=== PATIENT | female | born 1945 | race Caucasian/White ===

== ENCOUNTER → 2017-08-08 | Outpatient (CLI) | payer OTHER, MEDICARE | LOC: GIMAGING 09:11 | PROVIDERS: ATTEND Internal Medicine Geriatric Medicine | DX: M19.012 Primary osteoarthritis, left shoulder (principal) | CPT/HCPCS: 73030-PO ==

== ENCOUNTER → 2017-10-24 | Outpatient (CLI) | payer OTHER, MEDICARE | LOC: FIMAGING 11:10 | PROVIDERS: ATTEND Internal Medicine Geriatric Medicine | DX: Z13.820 Encounter for screening for osteoporosis (principal); N95.1 Menopausal and female climacteric states ==

== ENCOUNTER → 2017-12-27 | Outpatient (CLI) | payer OTHER, MEDICARE | LOC: GIMAGING 12:43 | PROVIDERS: ATTEND Internal Medicine | DX: I51.7 Cardiomegaly (principal); J98.11 Atelectasis; M47.9 Spondylosis, unspecified | CPT/HCPCS: 71046-PO ==

== ENCOUNTER → 2017-12-28 | Outpatient (CLI) | payer OTHER, MEDICARE ==
[~2017-12-28] MED LIST: IOPAMIDOL (ISOVUE 370) 100 ML BTL IV ONE
== END ==
LOC: FIMAGING 06:33
PROVIDERS: ATTEND Internal Medicine
DX: R06.02 Shortness of breath (principal); R06.09 Other forms of dyspnea; R09.02 Hypoxemia; R79.89 Other specified abnormal findings of blood chemistry
CPT/HCPCS: 71275; Q9967

== ENCOUNTER 2017-12-29 12:22 | Inpatient (IN) | payer OTHER, MEDICARE ==
[2017-12-29] MEDS ORDERED: ALBUTEROL 60 PUFFS/8 GM MDI IH PRN (15:20)
--- NOTE | 2017-12-29 15:26 | CPEKG ---
Heart Rate: 53 RR Interval: 1132 P-R Interval: 160 QRSD Interval: 74 QT Interval: 456 QTC Interval: 429 P [place]: 35 QRS [place]: 12 T Wave [place]: 16 EKG Severity - NORMAL ECG - EKG Impression: SINUS RHYTHM Electronically Signed By: César Madrigal 29-Dec-2017 15:50:02
--- NOTE | 2017-12-29 15:59 | GHP ---
[f rep st] HISTORY AND PHYSICAL DATE OF ADMISSION: 12/29/2017 CHIEF COMPLAINT: Dyspnea on exertion. HISTORY OF PRESENT ILLNESS: The patient is a 72-year-old female. She moved here from [place] 1 year ago. She was diagnosed with diastolic congestive heart failure 4 years ago. She has had dyspnea on exertion for quite some time , so she started a walking program and was up to 1 mile at a time. Although she did have a prolonged recovery after walking her mile, she was tolerating this in a stable manner. Approximately 4 days ago, she got acute worsening of her shortness of breath. She is so short of breath she cannot even cross the street without extreme dyspnea. She does not have any shortness of breath when at rest. There was no chest pain. There is no PND or orthopnea. She has baseline bilateral lower extremity edema; typically, the left swelling more than the right. She does describe weight gain; however, describes falling off the wagon regarding her diet plan. Her high weight was 228. She had gone on a diet and gone down to 210 but she recently gained weight back to 220. She attributes this to noncompliance with her eating protocol and she does not believe it to be fluid. She previously had PFTs in [place] and was told they were negative for COPD or asthma. Her last stress test and echocardiogram done in [place] were September 2016 and they were unremarkable.. PAST MEDICAL HISTORY: 1. Chronic kidney disease stage 3. Baseline creatinine 1.3. 2. Chronic diastolic congestive heart failure secondary to diastolic dysfunction. 3. Familial tremor. 4. Hypertension. 5. Hyperlipidemia. 6. Obesity, BMI 39. 7. History of stroke. PAST SURGICAL HISTORY: 1. Hysterectomy. 2. Left total hip arthroplasty. 3. Hernia surgery. 4. Cardiac catheterization August 2014 was normal. MEDICATIONS: Please see computer record for full detailed list. ALLERGIES: Penicillin. SOCIAL HISTORY: Never smoked. She will have an alcoholic beverage about 2 times per month. She lives alone. Her 7 years ago. She moved here from [place] 1 year ago to be closer to her sister who needed assistance. She has 2 children, both who still live in [place]. REVIEW OF SYSTEMS: Complete review of systems obtained. Review of systems negative on constitutional, HEENT, GI, pulmonary, vascular, , hematology, muscular, endocrine, psych. Pertinent positives as noted in HPI. FAMILY HISTORY: Reviewed, noncontributory to presenting complaint. PHYSICAL EXAMINATION: GENERAL: Well-developed, well-nourished female, in no acute distress. VITAL SIGNS: Temperature is 36.6, pulse 69, blood pressure 126 /75, saturating 94% on room air. HEENT: Normal conjunctivae. Pupils equal and react to light. Normal ears and nose. Hearing intact. Normal teeth. Oropharynx moist. NECK: Trachea midline. No thyromegaly. CHEST: Normal respiratory. Lungs are clear to auscultation bilaterally. CARDIOVASCULAR: Regular rhythm. No murmur. No extremity edema. ABDOMEN: Soft, nontender. No hepatosplenomegaly. SKIN: Warm, dry, intact without rash. MUSCULOSKELETAL : No cyanosis or clubbing. Strength 5/5 upper and lower extremities. NEUROLOGIC: Intact. Normal sensation to light touch. PSYCHIATRIC: Alert and oriented x3. Normal mood and affect. Normal judgment. Normal memory. LABORATORY DATA: Reviewed. These were done as an outpatient on November 27. White count 6.97, hematocrit 42.2, platelets 202. Sodium 139, potassium 4.9, chloride 101, bicarb 27, BUN 30, creatinine 1.3, glucose 68. Troponins negative. BNP is 544. TSH is 1.4. CT angiogram of the chest is negative for pulmonary embolus. Medical records reviewed. I reviewed outpatient medical records including Dr. Mcintyre's note, as well as stress test and echo from September 2016 in [place] for which records are provided. These were both unremarkable. ASSESSMENT/PLAN: 1. Dyspnea on exertion. As an outpatient yesterday, she had a CT angiogram of the chest that was negative. She also had a chest x-ray that was unremarkable. I do not think these need to be repeated. Her room air saturations are good at rest. Reportedly, she desaturates to 88% with exertion. I find her to be quite euvolemic and without evidence of pulmonary edema. I do not hear any wheezing. Will re-evaluate for possible cardiac etiology of dyspnea on exertion. Will repeat an echocardiogram and an exercise treadmill test. I do not think we need to repeat nuclear images at this time because she did have them relatively recently. If all this is negative, then I wonder whether repeating outpatient pulmonary function tests to evaluate for possible obesity hypoventilation syndrome. 2. Chronic congestive heart failure secondary to diastolic dysfunction. She appears relatively euvolemic at this time. Will continue her usual Lasix and losartan. 3. Chronic kidney disease. She is at her baseline creatinine 1.3. 4. Familial tremor. I will hold her beta-wilmer for stress testing in the morning. CODE STATUS: Full. ADMISSION STATUS: Will admit to observation. Will evaluate tomorrow regarding ongoing need for hospitalization. DVT PROPHYLAXIS: She is high risk. Will place on subcu Lovenox. /[id number]/MODL MTDD
--- NOTE | 2017-12-29 16:27 | ECHO ---
[email or web address] [address] Main: [phone] Fax: Transthoracic Echocardiogram Name: CANDI LINCOLN MR#: [id number] Study Date: 12/29/2017 Study Time: 03:48 PM Date of : 1945 Age: 72 year(s) Height: 160 cm (63 in.) Weight: 99.79 kg (220 lb.) BSA: 2.01 m2 Gender: Female Examination: Echo Indication: Dyspnea on exertion Image Quality: Contrast: Requested by: Josefa Lucio BP: 126 mmHg/75 mmHg Heart Rate: Rhythm: Indication: Dyspnea on exertion Procedure Staff Sport Psychologist: Fabricio Yeung RDCS Reading Physician: Feroz Rollins MD Requesting Provider: Conclusions: Normal global systolic LV function. EF is 67 %. Trivial to mild mitral regurgitation. Trivial to mild tricuspid valve regurgitation. The pulmonary artery pressure is mild to moderately increased. RV systolic pressure is measured 52 mmHg. Measurements: Chambers Valvular Assessment AV/MV Valvular Assessment TV/PV Normal Normal Normal Name Value Range Name Value Range Name Value Range Ao Sadie (MM): 2.6 cm (2.2 cm-3.7 AV Vmax: 1.74 m/s (1 m/s-1.7 TR Vmax: 3.41 mm/s ( - ) cm) m/s) TR PGmax: 47 mmHg ( - ) IVSd (2D): 1.0 cm (0.6 cm-1.1 AV maxP mmHg ( - ) syst. PAP: 52 mmHg ( - ) cm) LVOT Vmax: 1.11 m/s (0.7 m/s-1.1 PV Vmax: 0.84 m/s (0.6 m/s-0.9 LVDd (2D): 4.7 cm (3.9 cm-5.3 m/s) m/s) cm) MV E Vmax: 0.67 m/s ( - ) PV PGmax: 3 mmHg ( - ) LVDs (2D): 3.0 cm (2.1 cm-4 MV A Vmax: 0.73 m/s ( - ) cm) MV E/A: 0.92 ( - ) LVPWd (2D): 1.1 cm ( - ) LVEF (2D): 67 (>=54 %) Continued Measurements: Chambers Valvular Assessment AV/MV Valvular Assessment TV/PV Name Value Name Value Name Value LADs Lon.8 cm MV E/E' Septal: 12.70 CVP (est.): 5 mmHg LA Area: 24.1 cm2 MV E/E' Lateral: 9.10 LA Volume: 78 ml LA Volume Index: 38.8 ml/m2 Patient: CANDI LINCOLN Study Date: 12/29/2017 Page 1 of 2 03:48 PM TAPSE: 2.5 cm Findings: Left Ventricle: Normal size left ventricle. Mild concentric LV hypertrophy. Normal global systolic LV function. EF is 67 %. No regional wall motion abnormality. Diastolic dysfunction is present. . Right Ventricle: Normal size right ventricle. Normal RV function. Left Atrium: The left atrium is mildly dilated. Right Atrium: The right atrium is mildly dilated. Mitral Valve: The mitral valve is normal in appearance. Trivial to mild mitral regurgitation. Aortic Valve: The aortic valve is tri-leaflet and functions normally. Mild aortic cusp calcification is noted. There is no aortic valve regurgitation. No aortic valve stenosis is present. Tricuspid Valve: Trivial to mild tricuspid valve regurgitation. The pulmonary artery pressure is mild to moderately increased. RV systolic pressure is measured 52 mmHg. Pulmonic Valve: The pulmonic valve is normal in appearance and function. Aorta: The aorta is normal. Pericardium: No pericardial effusion. (No Signature Object) Patient: CANDI LINCOLN Study Date: 12/29/2017 Page 2 of 2 03:48 PM [id number]
[2017-12-29] MEDS: PROPRANOLOL SR 60 MG CAP PO SCH (18:23)
[2017-12-29] MEDS: buPROPion SR 150 MG TAB PO SCH (18:26)
[2017-12-29] MEDS: PRAVASTATIN SODIUM 20 MG TAB PO SCH (18:26)
[2017-12-29] MEDS ORDERED: PROPRANOLOL HCL 120 MG PO SCH ×2 (19:00)
[2017-12-29] MEDS ORDERED: NON-FORMULARY NEW DRUG (Simvastatin [Simvastatin] 10 MG) PO SCH (19:00)
[2017-12-29] MEDS ORDERED: TEMAZEPAM 15 MG CAP PO PRN (19:48)
[2017-12-30 04:41] LABS: PLATELET COUNT 176 10^3/uL (150-400)
[2017-12-30] MEDS: ENOXAPARIN 40 MG/0.4 ML SYR SC SCH (08:49)
[2017-12-30] MEDS: buPROPion SR 150 MG TAB PO SCH ×2 (08:50→19:24)
[2017-12-30] MEDS: CITALOPRAM 20 MG TAB PO SCH (08:50)
[2017-12-30] MEDS ORDERED: NON-FORMULARY NEW DRUG (Citalopram Hydrobromide [Celexa] 40 MG) PO SCH (09:00)
[2017-12-30] MEDS ORDERED: NON-FORMULARY NEW DRUG (Losartan Potassium [Losartan Potassium] 100 MG) PO SCH (09:00)
[2017-12-30] MEDS ORDERED: FUROSEMIDE 40 MG TAB PO SCH (09:00)
--- NOTE | 2017-12-30 10:50 | HOSPPROG ---
Hospitalist Progress Note Assessment/Plan: #BONILLA #Diastolic CHF #Right sided Failure #Sinus Bradycardia -reports that HR baseline is in the 50's. consider decreasing dose of BB if cont to have bradycardia tomorrow #Familial Tremor -chronically on Propranolol #HTN -Losartan #Chronic Renal Insufficiency, baseline Cr 1.2 #HLD, on statin, LDL at goal #Morbid Obesity Plan: -She received her BB yesterday and per Cards tech will change stress test to Ludy scan. -I suspect the etiology of her BONILLA may be either worsening heart failure vs RAD. She does report increased LE edema over the past few months and weight gain. However, her CXR and exam is not consistent with volume overload, although her body habitus makes assessment difficult. She also reports intermittent cough and wheezing and exam is c/w prolonged exp phase. Will try a trial of increased diuretics, check I's and O's, and schedule bronchodilators. She also moved from [place] about a year ago and her symptoms have been progressively worsening. -Negative trop and unremarkable EKG noted -Change to inpatient. -Lovenox for DVT proph Subjective: no cp or sob currently. on 3L, waiting for stress test. Objective: Vital Signs Temp Pulse Resp BP Pulse Ox 36.8 C 51 L 14 122/66 H 96 12/30/17 07:12 12/30/17 07:12 12/30/17 07:12 12/30/17 07:12 12/30/17 07:12 Microbiology 12/29/17 17:30 Respiratory Panel (PCR) - Final Nasal, Sinus - Swab No Organism Detected Laboratory Results 12/30/17 04:15 12/30/17 04:15 12/29/17 12/30/17 12/31/17 05:59 05:59 05:59 Intake Total 350 Balance 350 - Physical Exam Constitutional: no apparent distress Eyes: PERRL, EOMI Ears, Nose, Mouth, Throat: moist mucous membranes, hearing normal Cardiovascular: regular rate and rhythym, edema Respiratory: no respiratory distress, reduced air movement Gastrointestinal: normoactive bowel sounds, soft, non-tender abdomen Skin: warm Musculoskeletal: full muscle strength Neurologic: AAOx3 Psychiatric: interacting appropriately, not anxious, not encephalopathic ICD10 Worksheet Patient Problems: Problems Problem Status Onset Dyspnea on exertion Acute - ICD10 Problem Qualifiers (1) Dyspnea on exertion
--- NOTE | 2017-12-30 11:31 | ASMTCMCOM ---
CM Note CM Note Notes: Spoke w/RN and met w/ pt, she was admitted for increased sob. Pt uses home O2, has been set up by PCP with [facility], RT should call [facility] to let them know when pt discharging. Pt is otherwise independent, CM available for any changes. DC Plan: Independent Date Signed: 12/30/2017 11:31 AM Electronically Signed By:Vania Pablo RN
[2017-12-30] MEDS ORDERED: REGADENOSON 0.4 MG/5 ML SYR IVP ONE (11:40)
[2017-12-30] MEDS: ALBUTEROL 3 ML DEYVIAL IH SCH ×3 (11:51→21:55)
--- NOTE | 2017-12-30 12:39 | PDCARST ---
CAR Stress Test Results Type of Stress Test: Lexiscan stress test Indication: BONILLA Description of Procedure: After informed consent was obtained, pt was established to ECG, blood pressure, HR and oximetry monitoring. STRESS EKG AND HEMODYNAMIC DATA. Resting heart rate: 50 BPM. Resting ECG: SB. Resting blood pressure: 116/70 mmHg. O2 saturation at rest: 97%. Peak heart rate: 72 BPM. Peak blood pressure: 140/74 mmHg. Arrhythmias: none. Symptoms: The patient experienced no typical symptoms of angina during stress or recovery. Stress/Infusion ECG: No change in rhythm with no significant ST/T wave changes. Stress/infusion O2 saturation: 98% Impression: Uneventful Lexiscan infusion. Conclusion: Await nuclear images.
--- NOTE | 2017-12-30 13:33 | PDMN ---
Medical Necessity Medical necessity: change to IP; los>2mn for BONILLA r/t worsening diastolic heart failure vs RAD, w/ prolonged expiratory wheeze, cough, increasing LE edema and wt gain; requires stress test, increased diuretics w/one time IV dose, I&O, and scheduled bronchodilators; comorbid sinus rosie, htn, CRI, HLD, and morbid obesity; per order and progress note 12/30/17
[2017-12-30] MEDS: LOSARTAN POTASSIUM 50 MG TAB PO SCH (13:39)
[2017-12-30] MEDS: SPIRONOLACTONE 25 MG TAB PO SCH (13:41)
[2017-12-30] MEDS ORDERED: FUROSEMIDE 20 MG/2 ML VIAL IVP ONE (13:45)
[2017-12-30] MEDS: FUROSEMIDE 20 MG/2 ML VIAL IVP ONE ×2 (13:51→13:59)
[2017-12-30] MEDS: PRAVASTATIN SODIUM 20 MG TAB PO SCH (19:24)
[2017-12-30] MEDS: PROPRANOLOL SR 60 MG CAP PO SCH (20:19)
[2017-12-31] MEDS: ALBUTEROL 3 ML DEYVIAL IH SCH ×4 (06:25→21:33)
--- NOTE | 2017-12-31 08:27 | HOSPPROG ---
Hospitalist Progress Note Assessment/Plan: #BONILLA * unclear cause. Ct angio negative. Stress test looks OK. Has allergies but not actively wheezing. Had edema on admission. * will try more aggressive diuresis and walk patient today #Diastolic CHF #Right sided Failure #Sinus Bradycardia -reports that HR baseline is in the 50's. consider decreasing dose of BB if cont to have bradycardia tomorrow #Familial Tremor -chronically on Propranolol #HTN -Losartan #Chronic stage 3 kidney disease, baseline Cr 1.2 #HLD, on statin, LDL at goal #Morbid Obesity Subjective: feels about the same. only gets SOb with exertion at baseline. Hasn' t walked recently Objective: Vital Signs Temp Pulse Resp BP Pulse Ox 36.6 C 57 L 20 104/63 94 12/31/17 03:13 12/31/17 06:27 12/31/17 06:27 12/31/17 03:13 12/31/17 06:27 Laboratory Results 12/30/17 04:15 12/31/17 04:14 12/30/17 12/31/17 01/01/18 05:59 05:59 05:59 Intake Total 350 240 Balance 350 240 - Physical Exam Constitutional: no apparent distress, appears nourished, not in pain Eyes: anicteric sclera, EOMI Ears, Nose, Mouth, Throat: moist mucous membranes, hearing normal Cardiovascular: regular rate and rhythym, no murmur, rub, or gallop, edema ( trace) Respiratory: no respiratory distress, no rales or rhonchi, clear to auscultation , reduced air movement (slight), No expiratory wheeze Neurologic: AAOx3 Psychiatric: interacting appropriately, not anxious, not encephalopathic, thought process linear ICD10 Worksheet Patient Problems: Problems Problem Status Onset Dyspnea on exertion Acute
[2017-12-31] MEDS ORDERED: FUROSEMIDE 40 MG/4 ML VIAL IVP SCH (09:00)
[2017-12-31] MEDS: FUROSEMIDE 40 MG/4 ML VIAL IVP SCH (09:04)
[2017-12-31] MEDS: ENOXAPARIN 40 MG/0.4 ML SYR SC SCH (09:04)
[2017-12-31] MEDS: SPIRONOLACTONE 25 MG TAB PO SCH (09:05)
[2017-12-31] MEDS: CITALOPRAM 20 MG TAB PO SCH (09:05)
[2017-12-31] MEDS: LOSARTAN POTASSIUM 50 MG TAB PO SCH (09:05)
[2017-12-31] MEDS: buPROPion SR 150 MG TAB PO SCH ×2 (09:05→18:40)
[2017-12-31] MEDS: PRAVASTATIN SODIUM 20 MG TAB PO SCH (18:41)
[2017-12-31] MEDS: PROPRANOLOL SR 60 MG CAP PO SCH (19:52)
[2018-01-01] MEDS: ALBUTEROL 3 ML DEYVIAL IH SCH ×2 (06:11→11:08)
[2018-01-01 07:49] VITALS: BP 116/78
[2018-01-01] MEDS: buPROPion SR 150 MG TAB PO SCH (08:34)
[2018-01-01] MEDS: SPIRONOLACTONE 25 MG TAB PO SCH (08:35)
[2018-01-01] MEDS: LOSARTAN POTASSIUM 50 MG TAB PO SCH (08:35)
[2018-01-01] MEDS: ENOXAPARIN 40 MG/0.4 ML SYR SC SCH (08:36)
[2018-01-01] MEDS: CITALOPRAM 20 MG TAB PO SCH (08:36)
[2018-01-01] MEDS: FUROSEMIDE 40 MG/4 ML VIAL IVP SCH (08:43)
--- NOTE | 2018-01-01 10:23 | GDS ---
[f rep st] DISCHARGE SUMMARY DISCHARGE DIAGNOSES: 1. Dyspnea on exertion. Most likely due to diastolic congestive heart failure exacerbation. 2. Diastolic congestive heart failure exacerbation. 3. Hypertension. 4. Chronic kidney disease stage 3. 5. Essential tremor. 6. History of hypertension. 7. History of stroke. HISTORY: This is a 72-year-old female, who presented with subacute dyspnea on exertion. HOSPITAL COURSE: The patient had already had a CAT scan of her chest that ruled out PE outpatient. She was admitted and ended up getting a cardiac stress test which was negative for any ischemia. She had an echocardiogram which showed diastolic dysfunction. She did present with edema and weight gai n. Although the patient did not have overt pulmonary edema on imaging, working diagnosis was diastol ic congestive heart failure exacerbation. She was diuresed and with that her dyspnea on exertion imp roved and her hypoxia on exertion also resolved. She would thus be discharged home on a higher dose of Lasix and will follow up with her primary care doctor. DISPOSITION: Home. DISCHARGE MEDICATIONS: She is to resume her home medicines except: 1. She will increase her Lasix to twice daily for 4-5 days and then go back to 1 daily. She is inst ructed to weigh herself after that and go back to twice daily if her weight goes up. 2. Her losartan will be decreased to 50 mg as her blood pressure was on a little bit of the low side . FOLLOWUP INSTRUCTIONS: She is instructed to follow up with her primary care doctor. Greater than 30 minutes was spent with discharge. /[id number]/MODL
--- NOTE | 2018-01-01 10:46 | ASMTCMCOM ---
CM Note CM Note Notes: Patient has been medically cleared for discharge per hospital medicine, she is requesting a PT eveal to determine if oxygen needs exist with exertion. CM available should needs arise. Plan: Home independent Date Signed: 01/01/2018 10:46 AM Electronically Signed By:Dang Barger RN
--- NOTE | 2018-01-01 13:42 | ASDISCHSUM ---
Discharge Information Plan Status:Home with No Needs Medically Cleared to Leave:01/01/2018 Discharge Date:01/01/2018 01:04 PM CM D/C Disposition:Home, Routine, Self-Care ADT D/C Disposition:Home, Routine, Self-Care Projected Discharge Date:01/01/2018 12:00 AM Transportation at D/C:Self Discharge Delay Reason: Follow-Up Date:01/01/2018 12:00 AM Discharge Slot: Final Diagnosis:Dyspnea on exertion due to diastolic CHF exacerbation Placement Information Patient Contact Information Contact Name:LANA Relationship:Son Address: Work Phone: City: [facility] Phone: State/[place] Code: Email: Financial Information Financial Class:Medicare Primary Plan Desc:MEDICARE INPATIENT Primary Plan Number:[id number] Secondary Plan Desc:[employer]/MDR SUPPLEMENT Secondary Plan Number:[id number] Assessment Information LACE LACE Length of stay for Answers: 3 days current admission Comorbidities - select Answers: Cerebrovascular disease all that apply (CVA, TIA, aneurysms, vasc ular dementia) Congestive heart failure Other Notes: CKD stage 3 # of Emergency department Answers: 0 visits in the last 6 months Score: 7 Date Signed: 01/01/2018 01:41 PM Electronically Signed By:Naika Rahman [facility] CM Progress Note CM Note CM Note Notes: Spoke w/RN and met w/ pt, she was admitted for increased sob. Pt uses home O2, has been set up by PCP with [facility], RT should call [facility] to let them know when pt discharging. Pt is otherwise independent, CM available for any changes. DC Plan: Independent Date Signed: 12/30/2017 11:31 AM Electronically Signed By:Vania Pablo RN [facility] CM Progress Note CM Note CM Note Notes: Patient has been medically cleared for discharge per hospital medicine, she is requesting a PT eveal to determine if oxygen needs exist with exertion. CM available should needs arise. Plan: Home independent Date Signed: 01/01/2018 10:46 AM Electronically Signed By:Dang Barger RN Case Management Discharge Plan Note Case Management Discharge Discharge Order Complete? Answers: Yes Patient to Obtain Answers: Independently Medications Discharge Comments Notes: CM met with patient prior to discharge, patient states understanding to f/u with PCP and outpatient PT, states understanding that O2 is not being ordered. Patient given info for [facility] who accepts Medicare. IM delivered and receipt signed and placed in chart. Floor RN notified no further CM needs were idenitifed. Patient to drive self home. CM available for any further CM needs. D/C plan: D/C home today independently. Date Signed: 01/01/2018 12:19 PM Electronically Signed By:Nakia Rahman Intervention Information Intervention Type:*SCALES-Signed Date of Service:12/30/2017 10:42 AM Patient Type:Observation Staff Member:Vicki Early Hours: Discipline: Severity: Comment:
== END 2018-01-01 13:04 | disposition home or self-care (01) | DRG 291 ==
LOC: F3E 13:51 → OBSVTOIN 14:45
PROVIDERS: ADMIT Internal Medicine; ATTEND Internal Medicine
DX: I13.0 Hypertensive heart and chronic kidney disease with heart failure and stage 1 through stage 4 chronic kidney disease, or unspecified chronic kidney disease (principal); I50.33 Acute on chronic diastolic (congestive) heart failure; N18.3 Chronic kidney disease, stage 3 (moderate); G25.0 Essential tremor; I50.810 Right heart failure, unspecified; E66.01 Morbid (severe) obesity due to excess calories; E78.5 Hyperlipidemia, unspecified; Z86.73 Personal history of transient ischemic attack (TIA), and cerebral infarction without residual deficits
CPT/HCPCS: 71046-PO; 97161-GP; A9500; G0378; G0379; G8978-GP-CH; G8979-GP-CH; G8980-GP-CH; J1650; J1940; J2785; J7613; Q9967

== ENCOUNTER → 2018-02-16 | Outpatient (CLI) | payer OTHER, MEDICARE | LOC: BHFA 10:00 | PROVIDERS: ATTEND Internal Medicine Cardiovascular Disease | DX: I48.91 Unspecified atrial fibrillation (principal) ==

== ENCOUNTER → 2018-04-11 | Outpatient (CLI) | payer OTHER, MEDICARE | DX: Z12.31 Encounter for screening mammogram for malignant neoplasm of breast (principal) ==